=== PATIENT | female | born 2000 | race Caucasian/White ===

== ENCOUNTER 2021-12-14 07:45 | Inpatient (IN) | payer MEDICAID ==
[~2021-12-14] VITALS: Ht 157.5 cm; Wt 66.2 kg
[2021-12-14 11:12] VITALS: BP 117/66
[2021-12-14] MEDS ORDERED: MISOPROSTOL 100MCG TABLET VG SCH (12:45)
[2021-12-14] MEDS ORDERED: OXYTOCIN 30 UNITS/500ML NS PMX 500 ML IV SCH (12:45)
[2021-12-14] MEDS ORDERED: PENICILLIN G POTASSIUM 5 MMU in DEXT 5% WATER 100 ML IV SCH (12:45)
[2021-12-14] MEDS ORDERED: LIDOCAINE HCL 1% 20ML VIAL (Pyxis) INJ INFIL SCH (12:45)
[2021-12-14] MEDS ORDERED: RHO(D) IMMUNE GLOBULIN 300 MCG/SYR IM ONE (12:45)
[2021-12-14] MEDS ORDERED: ROPIVACAINE HCL/PF EPIDURAL 200 ML EPI SCH (13:00)
[2021-12-14] MEDS: DEXT 5%/LACTATED RINGERS 1,000 ML IV SCH ×2 (13:17→19:37)
[2021-12-14 14:27] LABS: BASOPHILS % 0.2 % (0.0-2.0); EOSINOPHILS % 0.8 % (0.0-5.0); HEMATOCRIT. 38.5 % (36.0-48.0); LYMPHOCYTES % 13.6 % (20.0-50.0); MEAN CORPUSCULAR HEMOGLOBIN 32.3 pg (28.0-32.0); MEAN CORPUSCULAR VOLUME 95.4 fL (81.0-99.0); MEAN PLATELET VOLUME 8.9 fl (7.4-10.4); MONOCYTES % 7.2 % (2.0-8.0); NEUTROPHILS % 78.2 % (40.0-76.0); PLATELET 286 x1000/uL (130-400); RED BLOOD CELL COUNT 4.03 mill/uL (4.2-5.4); RED CELL DISTRIBUTION WIDTH 13.4 % (11.6-14.6)
[2021-12-14 14:31] LABS: CLARITY URINE CLOUDY (CLEAR); COLOR URINE YELLOW (YELLOW); KETONES URINE NEGATIVE (NEGATIVE); LEUKOCYTE ESTERASE URINE 3+ (NEGATIVE); NITRITE URINE NEGATIVE (NEGATIVE); OCCULT BLOOD URINE TRACE (NEGATIVE); PH URINE 6.5 (4.5-8.0); PROTEIN URINE TRACE (NEGATIVE); SPECIFIC GRAVITY URINE 1.015 (1.005-1.030); UROBILINOGEN URINE 0.2 E.U./dL (0.2-1.0)
[2021-12-14 14:33] LABS: CHLORIDE 108 mEq/L (98-107)
[2021-12-14 15:19] LABS: *AMPHETAMINES SCREEN URINE NEGATIVE (NEGATIVE); *BARBITURATES SCREEN URINE NEGATIVE (NEGATIVE); *BENZODIAZEPINES SCREEN URINE NEGATIVE (NEGATIVE); *COCAINE SCREEN URINE NEGATIVE (NEGATIVE); CANNABINOID URINE SCREEN NEGATIVE (NEGATIVE); METHADONE URINE SCREEN NEGATIVE (NEGATIVE); OPIATES URINE SCREEN NEGATIVE (NEGATIVE); PHENCYCLIDINE URINE SCREEN NEGATIVE (NEGATIVE)
[2021-12-14 15:21] LABS: INR 0.9; PARTIAL THROMBOPLASTIN TIME 28.2 sec (23.4-31.0); PROTHROMBIN TIME 9.8 sec (9.6-11.0)
[2021-12-14 15:50] LABS: HEPATITIS B SURFACE ANTIGEN NEGATIVE
[2021-12-14] MEDS: MISOPROSTOL 100MCG TABLET VG PRN (16:01)
[2021-12-14] MEDS ORDERED: METHYLERGONOVINE MALEATE 0.2 MG/ML IM NR (21:00)
[2021-12-14] MEDS: PENICILLIN G POTASSIUM 2.5 MMU in DEXTROSE 5% WATER 50 ML IV SCH (21:11)
[2021-12-15] MEDS: BUTORPHANOL TARTRATE 2 MG/ML VIAL IV PRN ×2 (00:48→04:35)
[2021-12-15] MEDS: PENICILLIN G POTASSIUM 2.5 MMU in DEXTROSE 5% WATER 50 ML IV SCH ×6 (03:25→23:32)
[2021-12-15] MEDS: LACTATED RINGERS 1,000 ML IV SCH ×2 (13:59→23:33)
[2021-12-15] MEDS: BUTORPHANOL TARTRATE 2 MG/ML VIAL IM PRN (20:25)
[2021-12-16] MEDS: PENICILLIN G POTASSIUM 2.5 MMU in DEXTROSE 5% WATER 50 ML IV SCH ×5 (03:46→20:30)
[2021-12-16] MEDS: LACTATED RINGERS 1,000 ML IV SCH ×2 (09:58→18:30)
[2021-12-16] MEDS: MISOPROSTOL 100MCG TABLET VG PRN ×3 (15:23→23:33)
[2021-12-17] MEDS: PENICILLIN G POTASSIUM 2.5 MMU in DEXTROSE 5% WATER 50 ML IV SCH ×5 (00:05→17:01)
[2021-12-17] MEDS: BUTORPHANOL TARTRATE 2 MG/ML VIAL IM PRN (01:31)
[2021-12-17] MEDS ORDERED: ROPIVACAINE HCL/PF EPIDURAL 200 ML EPI SCH (06:30)
[2021-12-17] MEDS: LACTATED RINGERS 1,000 ML IV SCH ×3 (06:59→22:54)
[2021-12-17] MEDS ORDERED: ROPIVACAINE HCL/PF EPIDURAL 200 ML EPI ONE (08:07)
[2021-12-17] MEDS ORDERED: RHO(D) IMMUNE GLOBULIN 300 MCG/SYR IM PRN (19:15)
[2021-12-17] MEDS ORDERED: BENZOCAINE/LANOLIN/ALOE VERA SPRAY TOP PRN (19:15)
[2021-12-17] MEDS ORDERED: IBUPROFEN 400MG TABLET PO PRN (19:15)
[2021-12-17] MEDS: IBUPROFEN 800MG TABLET PO PRN (19:55)
[2021-12-17 22:30] VITALS: BP 94/50
[2021-12-17 23:30] VITALS: BP 94/52
[2021-12-18] MEDS: IBUPROFEN 800MG TABLET PO PRN ×2 (03:26→10:41)
[2021-12-18 04:20] VITALS: BP 90/54
[2021-12-18 07:21] LABS: BASOPHILS % 0.2 % (0.0-2.0); EOSINOPHILS % 0.3 % (0.0-5.0); HEMATOCRIT. 32.5 % (36.0-48.0); HEMOGLOBIN. 11.1 g/dL (12.0-16.0); LYMPHOCYTES % 11.4 % (20.0-50.0); MEAN CORPUSCULAR HEMOGLOBIN 32.9 pg (28.0-32.0); MEAN CORPUSCULAR VOLUME 96.2 fL (81.0-99.0); MEAN PLATELET VOLUME 8.8 fl (7.4-10.4); MONOCYTES % 5.4 % (2.0-8.0); NEUTROPHILS % 82.7 % (40.0-76.0); PLATELET 241 x1000/uL (130-400); RED BLOOD CELL COUNT 3.38 mill/uL (4.2-5.4); RED CELL DISTRIBUTION WIDTH 13.3 % (11.6-14.6)
[2021-12-18 08:10] VITALS: BP 85/43
[2021-12-18] MEDS: FERROUS SULFATE 325MG TABLET PO SCH (10:40)
[2021-12-18] MEDS: PRENATAL VIT/FE FUMARATE/FA TABLET PO SCH (10:40)
[2021-12-18 16:50] VITALS: BP 95/50
[2021-12-18 21:42] VITALS: BP 106/62
[2021-12-19 04:52] VITALS: BP 100/64
[2021-12-19] MEDS: PRENATAL VIT/FE FUMARATE/FA TABLET PO SCH (09:03)
[2021-12-19] MEDS: FERROUS SULFATE 325MG TABLET PO SCH (09:03)
[2021-12-19] MEDS: IBUPROFEN 800MG TABLET PO PRN (09:03)
[2021-12-19] MEDS ORDERED: LANOLIN OINT 7GM TUBE TOP PRN (11:15)
[2021-12-19 11:17] VITALS: BP 98/64
== END 2021-12-19 13:00 | disposition home or self-care (01) | DRG 560 ==
LOC: OBSVTOIN 07:45 → 8 EST LDRP 07:45 → 8EST 12-17 22:42
PROVIDERS: ADMIT Obstetrics & Gynecology; ATTEND Obstetrics & Gynecology
PROC: 10D07Z6 Extraction of Products of Conception, Vacuum, Via Natural or Artificial Opening (ICD-10-PCS; principal; 2021-12-17)
PROC: 0W8NXZZ Division of Female Perineum, External Approach (ICD-10-PCS; 2021-12-17)
PROC: 3E0R3BZ Introduction of Anesthetic Agent into Spinal Canal, Percutaneous Approach (ICD-10-PCS; 2021-12-17)
PROC: 00HU33Z Insertion of Infusion Device into Spinal Canal, Percutaneous Approach (ICD-10-PCS; 2021-12-17)
DX: O69.1XX0 Labor and delivery complicated by cord around neck, with compression, not applicable or unspecified (principal); Z37.0 Single live birth; O64.0XX0 Obstructed labor due to incomplete rotation of fetal head, not applicable or unspecified; Z20.822 Contact with and (suspected) exposure to COVID-19; O77.0 Labor and delivery complicated by meconium in amniotic fluid; Z3A.39 39 weeks gestation of pregnancy
CPT/HCPCS: 36415; 76805; 76818; 80053; 80305; 81003; 85025; 86592; 86703; 86762; 86850; 86900; 87340; 87426; 90384; G0378; J0595; J2540; J2795; J7060; J7120; J7121; J2590